=== PATIENT | male | born 1940 | race Caucasian/White ===

== ENCOUNTER → 2024-09-25 08:41 | Outpatient (REF) | payer MEDICARE, OTHER, SELFPAY | LOC: PAVMRI 08:41 | PROVIDERS: ATTENDING PHYSICIAN Anesthesiology; FAMILY PHYSICIAN Internal Medicine | DX: M48.062 Spinal stenosis, lumbar region with neurogenic claudication (principal); M54.16 Radiculopathy, lumbar region | CPT/HCPCS: 72148 ==